=== PATIENT | female | born 1950 ===

== ENCOUNTER 2018-11-17 13:31 | Outpatient (CLI) | payer OTHER | END 2018-11-17 13:58 | disposition home or self-care (01) | LOC: SONOGRAMA 13:31 | DX: N60.11 Diffuse cystic mastopathy of right breast (principal); N60.12 Diffuse cystic mastopathy of left breast ==

== ENCOUNTER 2019-01-13 09:36 | Outpatient (CLI) | payer OTHER ==
[2019-01-14] MEDS ORDERED: HYZAAR 50-12.51 EACH PO (11:57)
[2019-01-14] MEDS ORDERED: METFORMIN HCL500 M2 PO (11:57)
[2019-01-14] MEDS ORDERED: ANASTROZOLE1 MG PO (11:58)
== END 2019-01-13 10:17 | disposition home or self-care (01) ==
LOC: LAB 09:36
DX: I10 Essential (primary) hypertension (principal); N62 Hypertrophy of breast

== ENCOUNTER → 2019-01-23 | Day surgery (SDC) | payer OTHER ==
[~2019-01-23] MED LIST: ANASTROZOLE1 MG PO; HYZAAR 50-12.51 EACH PO; METFORMIN HCL500 M2 PO
== END | disposition home or self-care (01) ==
LOC: CIR.AMB 06:41
PROVIDERS: Plastic Surgery; Surgery
PROC: 0HBV0ZZ Excision of Bilateral Breast, Open Approach (ICD-10-PCS; 2019-01-23)
PROC: 0HBU0ZZ Excision of Left Breast, Open Approach (ICD-10-PCS; principal; 2019-01-23 07:00)
PROC: 07B60ZZ Excision of Left Axillary Lymphatic, Open Approach (ICD-10-PCS; 2019-01-23 07:00)
DX: C50.112 Malignant neoplasm of central portion of left female breast (principal); N62 Hypertrophy of breast; C77.3 Secondary and unspecified malignant neoplasm of axilla and upper limb lymph nodes